=== PATIENT | male | born 1940 | race Caucasian/White ===

== ENCOUNTER 2019-06-04 09:09 | Emergency (ER) | payer MEDICARE ==
[~2019-06-04] VITALS: Ht 172.7 cm; Wt 79.7 kg
[~2019-06-04 09:09] MED LIST: ASPI-496 PO; ATOR20TA PO; CLOP75TA52 PO; METO25TA35 PO; OMEP20TA62 PO; PROP20TA PO; ROSU40TA PO; [UNRECOGNIZED DRUG - REMARK]
--- NOTE | 2019-06-04 10:39 | NUR ---
PT ELOPED, STATED HE CAN'T STAY ANY LONGER BECAUSE HE HAS CUSTOMERS WAITING FOR HIM AT HIS [employer]. ERP AWARE. PT REFUSING TO CHECK OUT WITH REGISTRATION. PT LEFT HIS PHONE NUMBERS FOR REGISTRATION, THEN WALKED OUT OF ED.
[2019-06-04 10:42] VITALS: BP 148/77
[2019-06-04 10:46] LABS: RAPID INFLUENZA A Negative (Negative); RAPID INFLUENZA B Negative (Negative)
== END 2019-06-04 10:46 | disposition home or self-care (01) ==
LOC: ED 10:40
DX: R05 Cough (principal); R09.89 Other specified symptoms and signs involving the circulatory and respiratory systems; I10 Essential (primary) hypertension; M19.90 Unspecified osteoarthritis, unspecified site; Z86.73 Personal history of transient ischemic attack (TIA), and cerebral infarction without residual deficits; Z95.0 Presence of cardiac pacemaker
CPT/HCPCS: 71045; 87400; 99284

== ENCOUNTER 2020-02-28 13:03 | Emergency (ER) | payer MEDICARE ==
[~2020-02-28] VITALS: Ht 175.3 cm; Wt 77.9 kg
[2020-02-28 13:48] VITALS: BP 145/71
[2020-02-28 13:57] LABS: BASOPHILS % (AUTO) 1 % (0-1); EOSINOPHILS % (AUTO) 2 % (1-7); LYMPHOCYTES % (AUTO) 15 % (22-44); MEAN CORPUSCULAR HEMOGLOBIN 30.5 pg (27.5-34.5); MEAN CORPUSCULAR HGB CONC 33.5 g/dL (33.2-36.2); MEAN PLATELET VOLUME 7.2 fL (7.4-10.4); MONOCYTES % (AUTO) 10 % (2-9); NEUTROPHILS % (AUTO) 72 % (42-75); PLATELET COUNT 291 x10^3/uL (130-400); RED CELL DISTRIBUTION WIDTH 14.6 % (9.4-14.8)
[2020-02-28 14:06] LABS: ALANINE AMINOTRANSFERASE 24 U/L (12-78); ALBUMIN 3.3 g/dL (3.4-5.0); ANION GAP 6 mmol/L (5-15); CALCIUM 9.1 mg/dL (8.5-10.1); CHLORIDE 106 mmol/L (98-107); CREATININE 1.14 mg/dL (0.7-1.3)
[2020-02-28 14:10] LABS: MD NO
[2020-02-28 14:11] LABS: ALKALINE PHOSPHATASE 78 U/L (45-117); BILIRUBIN,TOTAL 1.1 mg/dL (0.2-1.0); TOTAL PROTEIN 7.4 g/dL (6.4-8.2)
--- NOTE | 2020-02-28 14:24 | NUR ---
SPOKE WITH PT'S SON, DR BOLTON. DR BOLTON GIVEN INFORMATION WAS PERMITTED BY PT. PT PUT NET FRONT END DEVELOPER LIGHT STATING LEAVING. THIS RN TO ROOM, PT AND BELONGINGS GONE. THIS REPORTED TO DR WARNER.
== END 2020-02-28 14:42 | disposition left against medical advice (07) ==
LOC: ED 14:20
DX: R07.89 Other chest pain (principal); Z20.828 Contact with and (suspected) exposure to other viral communicable diseases; R06.02 Shortness of breath; R50.9 Fever, unspecified; R05 Cough; R06.00 Dyspnea, unspecified; M79.10 Myalgia, unspecified site; I10 Essential (primary) hypertension; J44.9 Chronic obstructive pulmonary disease, unspecified; F17.210 Nicotine dependence, cigarettes, uncomplicated; Z86.73 Personal history of transient ischemic attack (TIA), and cerebral infarction without residual deficits
CPT/HCPCS: 71045; 80053; 82728; 83615; 85025; 87040; 87635; 93005; 99285

== ENCOUNTER 2020-06-04 15:43 | Emergency (ER) | payer MEDICARE ==
[~2020-06-04] VITALS: Ht 170.2 cm; Wt 70.0 kg
[2020-06-04 15:46] VITALS: BP 141/57
--- NOTE | 2020-06-04 15:56 | NUR ---
PT BIB [facility] FOR C/O CHILLS AND TREMORS IN THE HANDS FOR 2.5 HOURS. UPON ARRIVAL PT NO LONGER TREMULOUS. PT PLACED ON SPO2 & BP MONITORS. VSS/NAD. CALL LIGHT WITHIN REACH. NO NEEDS AT THIS TIME.
[2020-06-04] MEDS ORDERED: ACETAMINOPHEN 500 MG TABLET PO ONE (16:30)
--- NOTE | 2020-06-04 16:37 | NUR ---
URINE COLLECTED AND SENT TO LAB.
--- NOTE | 2020-06-04 16:48 | NUR ---
XRAY AT BS
[2020-06-04 16:55] LABS: BASOPHILS % (AUTO) 1 % (0-1); EOSINOPHILS % (AUTO) 1 % (1-7); LYMPHOCYTES % (AUTO) 5 % (22-44); MEAN CORPUSCULAR HEMOGLOBIN 30.9 pg (27.5-34.5); MEAN CORPUSCULAR HGB CONC 33.8 g/dL (33.2-36.2); MEAN PLATELET VOLUME 7.6 fL (7.4-10.4); MONOCYTES % (AUTO) 4 % (2-9); NEUTROPHILS % (AUTO) 91 % (42-75); PLATELET COUNT 254 x10^3/uL (130-400); RED BLOOD COUNT 4.79 x10^6/uL (4.38-5.82); RED CELL DISTRIBUTION WIDTH 15.4 % (9.4-14.8)
[2020-06-04] MEDS ORDERED: ACETAMINOPHEN 500 MG TABLET ONE (16:57)
[2020-06-04 17:03] LABS: ALANINE AMINOTRANSFERASE 16 U/L (12-78); ALBUMIN 3.7 g/dL (3.4-5.0); ANION GAP 4 mmol/L (5-15); CALCIUM 8.5 mg/dL (8.5-10.1); CHLORIDE 113 mmol/L (98-107); CREATININE 1.43 mg/dL (0.7-1.3)
[2020-06-04 17:04] LABS: MICROSCOPIC NOT IND
[2020-06-04 17:05] LABS: ALKALINE PHOSPHATASE 79 U/L (45-117); BILIRUBIN,TOTAL 0.5 mg/dL (0.2-1.0)
[2020-06-04] MEDS ORDERED: SODIUM CHLORIDE FLUSH 10ML SYR IVF ONE (17:30)
[2020-06-04 17:36] LABS: MD SCAN
--- NOTE | 2020-06-04 17:57 | NUR ---
Patient given discharge instructions and they have confirmed that they understand the instructions. Patient ambulatory with steady gait.
== END 2020-06-04 18:04 | disposition home or self-care (01) ==
LOC: ED 17:45
DX: N28.9 Disorder of kidney and ureter, unspecified (principal); Z20.822 Contact with and (suspected) exposure to COVID-19; R50.9 Fever, unspecified; R05 Cough; I10 Essential (primary) hypertension; J44.9 Chronic obstructive pulmonary disease, unspecified; I25.10 Atherosclerotic heart disease of native coronary artery without angina pectoris; F17.200 Nicotine dependence, unspecified, uncomplicated; Z86.73 Personal history of transient ischemic attack (TIA), and cerebral infarction without residual deficits
CPT/HCPCS: 36415; 71045; 80053; 81003; 83605; 84145; 85025; 87040; 99284; U0003